=== PATIENT | female | born 1955 | race Caucasian/White ===

== ENCOUNTER 2017-02-22 04:47 | Emergency (ER) | payer OTHER ==
[2017-02-22 04:56] VITALS: RESP 16; TEMP 98.2
--- NOTE | 2017-02-22 05:37 | EDPHY ---
H & P Stated Complaint: constipation Time Seen by Provider: 02/22/17 05:29 HPI/ROS: HPI The patient presents with constipation which has been present for the last 4 days which started slowly and got progressively worse. She has been taking stool softeners, however these are not helping. She has a pressure like sensation from her rectum. She also is having difficulty urinating for the last several hours. She had a bunionectomy performed 5 days ago and has been on [place] ever since.. REVIEW OF SYSTEMS Constitutional: No fever, no chills. Eyes: No discharge. ENT: No sore throat. Cardiovascular: No chest pain, no palpitations. Respiratory: No cough, no shortness of breath. Gastrointestinal: No abdominal pain, no vomiting. Genitourinary: No hematuria. Musculoskeletal: No back pain. Skin: No rashes. Neurological: No headache. PMHx: Status post bunionectomy Soc Hx: Lives at home with PHYSICAL General Appearance: Alert, no distress Eyes: Pupils equal and round no pallor or injection ENT, Mouth: Mucous membranes moist Respiratory: There are no retractions, lungs are clear to auscultation Cardiovascular: Regular rate and rhythm Gastrointestinal: Abdomen is soft and non-tender, no masses, bowel sounds normal Rectal: Large amount of hard stool in rectal vault Neurological: A&O, moves all extremities Skin: Warm and dry, no rashes Musculoskeletal: Neck is supple non tender Extremities: symmetrical, full range of motion Psychiatric: Patient is oriented X 3, there is no agitation Source: Patient Exam Limitations: No limitations - Personal History Current Tetanus/Diphtheria Vaccine: Yes Current Tetanus Diphtheria and Acellular Pertussis (TDAP): Yes - Medical/Surgical History Hx Asthma: No Hx Chronic Respiratory Disease: No Hx Diabetes: No Hx Cardiac Disease: No Hx Renal Disease: No Hx Cirrhosis: No Hx Alcoholism: No Hx HIV/AIDS: No Hx Splenectomy or Spleen Trauma: No Other PMH: hypothyroid, bunyonectomy, uterine prolapse with repair - Social History Smoking Status: Never smoked Constitutional: Initial Vital Signs Temperature (C) 36.8 C 02/22/17 04:53 Heart Rate 98 02/22/17 04:53 Respiratory Rate 16 02/22/17 04:53 Blood Pressure 136/86 H 02/22/17 04:53 O2 Sat (%) 98 02/22/17 04:53 O2 Delivery Mode Room Air Allergies/Adverse Reactions: codeine [Codeine] Allergy (Unknown, Verified 02/22/17 04:51) Unknown ENVIRONMENTAL Allergy (Mild, Uncoded 02/22/17 04:51) NASAL CONGESTION Home Medications: Medication Instructions Recorded Synthroid 02/13/10 Hydrocodon-Acetaminoph 2.5-325 02/22/17 Ondansetron 02/22/17 Ranitidine HCl 02/22/17 Medical Decision Making Differential Diagnosis: This is a 61-year-old female who is status post bunionectomy, currently on [place] , with constipation. On exam, her abdominal exam is benign, rectal exam reveals large amount of stool in rectal vault. I performed a disimpaction, the patient was quite uncomfortable so we stopped the procedure. She then received an enema. She did not have any further stool output. I repeated the disimpaction, this time with good result. She was able to have a large bowel movement and felt better and was able to urinate. She will be discharged from the ER, I have explained to her that she will need to use MiraLax daily and magnesium citrate as needed. Departure - Departure Disposition: Home, Routine, Self-Care Clinical Impression: Fecal impaction Constipation Qualifiers: Constipation type: drug induced constipation Qualified Code(s): K59.03 - Drug induced constipation Condition: Good Instructions: Constipation (ED) Additional Instructions: I recommend that you take MiraLax daily and you can use magnesium citrate if you feel the constipation coming back. Referrals: SHONNA DAVIS [Primary Care Provider] - As per Instructions
[2017-02-22] MEDS ORDERED: MAGNESIUM CITRATE 300 ML BOTTLE ONE (07:30)
[2017-02-22 07:40] VITALS: BP 129/78; PULSE 76; O2SAT 93
== END 2017-02-22 07:40 | disposition home or self-care (01) ==
DX: K59.03 Drug induced constipation (principal)

== ENCOUNTER → 2017-07-14 | Outpatient (CLI) | payer OTHER | LOC: FIMAGING 09:32 | PROVIDERS: ATTEND Family Medicine | DX: Z12.31 Encounter for screening mammogram for malignant neoplasm of breast (principal) | CPT/HCPCS: G0202 ==

== ENCOUNTER → 2018-07-16 | Outpatient (CLI) | payer OTHER | LOC: FIMAGING 10:36 | PROVIDERS: ATTEND Family Medicine | DX: Z12.31 Encounter for screening mammogram for malignant neoplasm of breast (principal) ==

== ENCOUNTER → 2018-07-18 | Outpatient (CLI) | payer OTHER | LOC: FIMAGING 11:11 | PROVIDERS: ATTEND Family Medicine | DX: M85.89 Other specified disorders of bone density and structure, multiple sites (principal); E07.9 Disorder of thyroid, unspecified; Z78.0 Asymptomatic menopausal state ==